=== PATIENT | female | born 1955 | race Hispanic/Latino ===

== ENCOUNTER 2016-11-30 07:44 | Day surgery (SDC) | payer MEDICAID ==
[~2016-11-30 07:44] MED LIST: ANCEF/STERILE WATER 2 GM/20 ML IV NR
--- NOTE | 2016-11-30 09:13 | Anesthesia Day of Surgery ---
Anesthesia Day of Surgery - Day of Surgery Patient Examined: Yes Patient H&P Reviewed: Yes Patient is NPO: Yes
--- NOTE | 2016-11-30 09:17 | Anesthesia Consultation ---
Anesthesia Consult and Med Hx Date of service: 11/30/16 - Airway Anesthetic Teeth Evaluation: Dentures (only has upper in.) ROM Head & Neck: Adequate Mental/Hyoid Distance: Adequate Mallampati Class: Class II Intubation Access Assessment: Probably Good - Pulmonary Exam CTA: Yes - Cardiac Exam Cardiac Exam: RRR - Pre-Operative Health Status ASA Pre-Surgery Classification: ASA3 Proposed Anesthetic Plan: General - Pulmonary Hx Smoking: Yes (1/2 PPD X 49 YRS) Hx Sleep Apnea: No ([facility] PRE SCREEN LOW RISK) - Cardiovascular System Hx Hypertension: Yes (ON AND OFF MEDS X 40 YRS) Hx Heart Attack/AMI: No Hx Cardia Arrhythmia: Yes (Incomplete RBBB) - Central Nervous System CVA: No (TIA) Hx Back Pain: Yes Hx Psychiatric Problems: Yes (Anxiety and depression) - Gastrointestinal Hx Gastroesophageal Reflux Disease: Yes - Endocrine Hx Cirrhosis: Yes (and pancreatitis) Hx Liver Disease: No (Stage 4 liver failure. Recently treated for Hep C and cured.) Hx Hypothyroidism: Yes (ON DAILY MEDS) - Hematic Hx Anemia: Yes (NOT RECENT) - Other Systems Hx Cancer: No - Additional Comments Anesthesia Medical History Comments: OA, glaucoma, diverticulitis, IBS
[2016-11-30] MEDS ORDERED: ZOFRAN IV PRN (09:19)
[2016-11-30] MEDS ORDERED: MARCAINE 0.25% INFILTRATI ONE ×2 (09:45→11:15)
[2016-11-30] MEDS ORDERED: XYLOCAINE 1%/ EPI 1:100,000 INFILTRATI ONE ×2 (09:45→10:58)
[2016-11-30] MEDS ORDERED: LACTATED RINGERS 1,000 ML IV SCH ×2 (10:00)
[2016-11-30] MEDS ORDERED: PEPCID PO NR (10:00)
[2016-11-30] MEDS ORDERED: XYLOCAINE MPF 2% ONE (10:27)
[2016-11-30] MEDS ORDERED: SUBLIMAZE ONE (10:28)
[2016-11-30] MEDS ORDERED: DIPRIVAN 10 MG/ML IV ONE (10:28)
[2016-11-30 10:31] LABS: INR 0.94 (0.87-1.13)
[2016-11-30] MEDS ORDERED: NACL 0.9% IR ONE (10:58)
[2016-11-30] MEDS ORDERED: DECADRON ONE (11:23)
[2016-11-30] MEDS ORDERED: ZOFRAN ONE (11:23)
--- NOTE | 2016-11-30 11:29 | Short Stay Summary ---
Short Stay Documentation - Allergies and Medications Current Medications: Allergies meperidine HCl [From Demerol] Allergy (Verified 11/24/16 11:26) Rash Home Medications Medication Instructions Recorded Confirmed Last Taken Type ALPRAZolam [Xanax TAB] 2 mg PO QHS 11/24/16 11/24/16 11/29/16 History Aspirin [Adult Low Dose Aspirin EC] 81 mg PO DAILY 11/24/16 11/30/16 11/23/16 History Desmond 72,000 units PO DAILY 11/24/16 11/24/16 11/29/16 History FLUoxetine HCL [PROzac] 40 mg PO QDAY 11/24/16 11/24/16 11/29/16 History Levothyroxine [Synthroid] 50 mcg PO QAM 11/24/16 11/24/16 11/29/16 History Lisinopril [Zestril] 20 mg PO PRN PRN 11/24/16 11/24/16 Unknown History Oxycodone HCl [oxyCODONE TAB] 10 mg PO Q6H PRN 11/24/16 11/24/16 11/29/16 History Simvastatin [Zocor TAB] 20 mg PO QHS 11/24/16 11/24/16 11/29/16 History Active Medications Cefazolin Sodium (Ancef/Sterile Water 2 Gm/20 Ml) 2 gm IV PREOP NR Stop: 11/30/16 23:59 Famotidine (Pepcid) 20 mg PO PREOP NR Stop: 11/30/16 23:59 Last Admin: 11/30/16 09:39 Dose: 20 mg Hydromorphone HCl (Dilaudid) 0.5 mg IV Q10MIN PRN PRN Reason: Pain , Severe (7-10) Stop: 12/03/16 09:20 Lactated Ringer's (Lactated Ringers) 1,000 mls @ 42 mls/hr IV DIRECT BRIANA Last Admin: 11/30/16 09:40 Dose: 42 mls/hr Lactated Ringer's (Lactated Ringers) 1,000 mls @ 75 mls/hr IV DIRECT BRIANA Short Stay Discharge Plan Activity: advance as tolerated, fall precautions Weight Bearing Status: Full Weight Bearing Diet: regular Wound: keep clean and dry, per your surgeon's advice Durable Medical Equipment Needed Upon Discharge: Cane Additional Instructions: follow DC instruction sheet, keepd ressing dry follow up with after 10 days.
[2016-11-30] MEDS: DILAUDID IV PRN ×2 (11:49→12:00)
[2016-11-30] MEDS ORDERED: NORCO 5/325 PO PRN (12:15)
--- NOTE | 2016-11-30 13:10 | Post Anesthesia Evaluation ---
- Post Anesthesia Evaluation Patient Participated: Yes Airway Patent: Yes Stable Respiratory Function: Yes Nausea/Vomiting: No Temp > 96.8F: Yes Pain Manageable: Yes Adequeate Hydration: Yes Anesthesia Complications: No
[2016-11-30 13:53] VITALS: BP 143/79
--- NOTE | 2016-11-30 16:22 | Operative Report ---
PREOPERATIVE DIAGNOSES: 1. Complex tear, medial meniscus posterior horn and junction of posterior horn mid body with a displaced flap, right knee. 2. Osteoarthritis, right knee joint. POSTOPERATIVE DIAGNOSES: 1. Complex tear, medial meniscus, right knee with displaced flap and nondisplaced flap piece with a complex tear, posterior horn and junction of posterior horn mid body of the right knee joint. 2. Mild to moderate osteoarthritis of the right knee joint. 3. Synovial hypertrophy and synovial proliferation, right knee joint. SURGEON: Zain Dudley M.D. [employer]: Tomas Rodriguez, operative tech. COMPLICATIONS: None. BLOOD LOSS: Minimal. BRIEF HISTORY: The patient is a 61-year-old lady with painful right knee, failed conservative treatment. MRI revealed a complex tear of the meniscus with osteoarthritis. Treatment options discussed. Nonoperative plan of treatment discussed. After listening to all risks, benefits, rationale, and alternatives, the patient elected for arthroscopic procedure of the right knee. No guarantee expressed. Risk and benefit discussed, informed consent obtained, brought to the hospital for the below procedure. PROCEDURES PERFORMED: 1. Right knee arthroscopy. 2. Arthroscopic partial medial meniscectomy. 3. Arthroscopic partial synovectomy. 4. Arthroscopic debridement and chondroplasty. DETAILS OF THE OPERATIVE REPORT: The patient was taken to the operating room. After smooth general endotracheal anesthesia, all the bony prominences carefully padded, placed supine on the operating table. Thigh tourniquet placed. Right knee, right lower extremity prepped and draped in sterile fashion. Leg elevated, tourniquet inflated to 300 mmHg. The patient was given 2 gram Ancef half an hour before the procedure. Anatomical landmarks were drawn out. Portal sites infiltrated with 1% lidocaine with epinephrine. A high lateral portal was created. Arthroscope was introduced. Diagnostic arthroscopy was performed. Findings were noted below. Under direct visualization, direct medial portal was created and using synovial resector and biters with arthroscopic instruments, partial medial meniscectomy performed and a stable meniscus rim was achieved, complex tear was noticed with flipped fragments on the posterior horn, which was probably the most source of her constant pain and discomfort and that was removed and a stable meniscal rim was achieved, checked with probe as well. Synovial hypertrophy and synovial proliferation was present and using synovial resector, partial synovectomy was performed. The loose floating synovial tissue and cartilage pieces were removed as well and suctioned out as well. Once the procedure was performed, fluid was suctioned out and portal sites closed with 3-0 nylon interrupted sutures and infiltrated with 0.25% plain Marcaine, 3 mL each portal. Dressing was done with Xeroform, 4 x 4, ABD, cast padding, Bart wrap. Tourniquet deflated. The patient tolerated the procedure well, shifted to recovery room in stable condition. Sponge and needle count was correct. ARTHROSCOPIC FINDING: Lateral gutter pristine with synovial hypertrophy and proliferation, patella grade 2+ osteoarthritic changes in about 60-70%, grade 3 about ____. Synovium, synovial hypertrophy and synovial proliferation present. Fat pad normal. PCL intact, ACL chronic partial tear, stable on examination with a probe. Medial femoral condyle, grade 2+ osteoarthritic changes in about 70%, grade 3 about 20%. Medial tibial plateau, grade 4 osteoarthritic changes about 20-30%, grade 3 about 20-30%, grade 2 about 20-30%. The lateral femoral condyle pristine, lateral tibial plateau, grade 2+ changes 80%. Lateral meniscus intact. JOB# [id number] SK/NTS
== END 2016-11-30 13:40 | disposition home or self-care (01) ==
LOC: OR 07:44
PROVIDERS: ATTEND Orthopaedic Surgery
DX: S83.231A Complex tear of medial meniscus, current injury, right knee, initial encounter (principal); X58.XXXA Exposure to other specified factors, initial encounter; Y93.89 Activity, other specified; Y92.89 Other specified places as the place of occurrence of the external cause; Y99.8 Other external cause status; M23.8X1 Other internal derangements of right knee; M67.261 Synovial hypertrophy, not elsewhere classified, right lower leg; M17.11 Unilateral primary osteoarthritis, right knee; Z79.82 Long term (current) use of aspirin; Z79.01 Long term (current) use of anticoagulants; Z88.6 Allergy status to analgesic agent; Z98.890 Other specified postprocedural states
CPT/HCPCS: 29881; 36415; 85610; 85730; A4217; J0690; J1100; J1170; J2405; J2704; J3010; J7120